=== PATIENT | female | born 1985 | race Caucasian/White ===

== ENCOUNTER 2017-09-15 08:43 | Emergency (ER) | payer OTHER, SELFPAY | END 2017-09-15 09:57 | disposition home or self-care (01) | LOC: SCSER 08:43 | DX: J06.9 Acute upper respiratory infection, unspecified (principal); J45.909 Unspecified asthma, uncomplicated; F17.210 Nicotine dependence, cigarettes, uncomplicated; Z79.899 Other long term (current) drug therapy | CPT/HCPCS: 87081; 87430; 99406 ==